=== PATIENT | female | born 1945 | race African-American/Black ===

== ENCOUNTER 2019-11-26 17:08 | Emergency (ER) | payer MEDICARE, MEDICAID, SELFPAY ==
--- NOTE | ~2019-11-26 | XR_ITS ---
EXAMINATION: XR chest 2V EXAM DATE: 11/26/2019 18:08 INDICATION: Cough today. Feels cold. TECHNIQUE: Frontal and lateral projections of the chest obtained and reviewed. Comparison is made to prior examination from 06/08/2019. FINDINGS: Chronic left basilar scarring. Mild hyperinflation. The lungs are otherwise clear. There a re no pleural effusions. The cardiomediastinal silhouette is within normal limits. There is no pneu mothorax suspected. There are mild bony degenerative changes. There is aortic arteriosclerosis. IMPRESSION: No acute cardiopulmonary findings. Reviewed, dictated and finalized at location A.
[2019-11-26 17:25] VITALS: BP 147/66; PULSE 85; RESP 16; TEMP 37; O2SAT 98
--- NOTE | 2019-11-26 17:42 | ED.GENADULT ---
HPI - General Adult General Chief complaint: Unspecified Stated complaint: feeling cold Time Seen by Provider: 11/26/19 17:42 Source: patient Mode of arrival: ambulatory Limitations: no limitations History of Present Illness HPI narrative: Kajal Cabral is a 74 yo female with PMH of chronic pain, stroke, chronic anticoagulation, copd, is here because not feeling well and is cold. Has cold sore on lip. VS and O2 sats are stable. poor historian Related Data Home Medications Medication Instructions Recorded Confirmed albuterol sulfate INHALATION 11/26/19 apixaban [Eliquis] 1 mg PO BID 11/26/19 11/26/19 atorvastatin 1 mg PO DAILY 11/26/19 11/26/19 folic acid 11/26/19 furosemide 1 mg PO DAILY 11/26/19 11/26/19 gabapentin 1 mg PO TID 11/26/19 11/26/19 lorazepam 1 mg PO TID 11/26/19 11/26/19 meloxicam 1 mg PO DAILY 11/26/19 11/26/19 spironolactone 1 mg PO BID 11/26/19 11/26/19 varenicline [Chantix] 1 mg PO DAILY 11/26/19 11/26/19 Allergies Allergy/AdvReac Type Severity Reaction Status Date / Time morphine Allergy Unknown VOMITING Verified 11/26/19 17:35 pentazocine Allergy Unknown VOMITING Verified 11/26/19 17:35 Review of Systems Review of Systems: Narrative: CONSTITUTIONAL: Denies fever, chills, sweats. States is cold, runny nose EYES: Denies visual changes, redness, discharge. ENT: Denies rhinorrhea, congestion, sore throat, otalgia. CARDIOVASCULAR: Denies chest pain, palpitations, edema. RESPIRATORY: Denies dyspnea, wheezing, cough GASTROINTESTINAL: Denies abdominal pain, nausea, vomiting, diarrhea. GENITOURINARY: Denies dysuria, hematuria, abnormal discharge SKIN: Denies rash or itching. fever blister along the right lower lip NEUROLOGIC: Denies numbness, or focal weakness. PSYCHIATRIC: Denies anxiety or depression. [facility] Social History Social History (Updated 11/26/19 @ 18:02 by Katy Laura CNP) Smoking status: Current some day smoker Alcohol intake: former Gender identity (if verbalized by the patient): Female Comments At time of signature, I agree with nursing past medical, surgical, social and family history. There is no relevant family history pertinent to the presenting complaint. Known high blood pressure Exam Narrative: Exam Narrative: GENERAL: This is a well-nourished, well-developed patient, in mild distress. States she just does not feel well HEAD: normocephalic, atraumatic. EYES: Sclera clear/white. Vision is grossly intact. EARS: External ears normal. Hearing grossly intact. NOSE: External nose normal without nasal discharge, nares without redness, no rhinorrhea. THROAT: Mucous membranes moist, NECK: Neck supple, CARDIOVASCULAR: Regular rate and rhythm without murmurs, gallops, or rubs. RESPIRATORY: Coarse to auscultation. Breath sounds equal bilaterally. No wheezes, rales, or rhonchi. GASTROINTESTINAL: Abdomen soft, SKIN: warm, intact with no suspicious lesions or rash, good texture and turgor. NEURO: awake, alert, and oriented to person, place and time. There were no obvious focal neurologic abnormalities. Steady gait EXTREMITIES: Normal range of motion. 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 Follow up with pcp at [place] Vital Signs Vital signs: Vital Signs Temperature 98.6 F 11/26/19 17:25 Pulse Rate 85 11/26/19 17:25 Respiratory Rate 16 11/26/19 17:25 Blood Pressure 147/66 H 11/26/19 17:25 Pulse Oximetry 98 11/26/19 17:25 Temperature 98.6 F 11/26/19 17:25 Pulse Rate 85 11/26/19 17:25 Respiratory Rate 16 11/26/19 17:25 Blood Pressure 147/66 H 11/26/19 17:25 Pulse Oximetry 98 11/26/19 17:25 Medical Decision Making Differential Diagno
== END 2019-11-26 18:30 | disposition home or self-care (01) ==
PROVIDERS: Emergency Provider Nurse Practitioner; PCP Internal Medicine
DX: B00.1 Herpesviral vesicular dermatitis (principal); J06.9 Acute upper respiratory infection, unspecified; Z86.73 Personal history of transient ischemic attack (TIA), and cerebral infarction without residual deficits; J44.9 Chronic obstructive pulmonary disease, unspecified; Z79.01 Long term (current) use of anticoagulants; G89.29 Other chronic pain; F17.200 Nicotine dependence, unspecified, uncomplicated
CPT/HCPCS: 71046; 99213; G0463

== ENCOUNTER 2021-04-18 11:00 | Outpatient (RCR) | payer MEDICARE, MEDICAID, SELFPAY ==
--- NOTE | 2021-02-20 10:41 | OTOPEVAL ---
OCCUPATIONAL THERAPY INITIAL EVALUATION 02/20/21 Thank you for referring Kajal Cabral to [facility].? The patient is scheduled to be seen for occupational therapy? 2x/week for 4 weeks. Please review, sign, date and return this plan of care RENETTA. I agree with and certify that the following plan of care is medically necessary. Referring Physician Date Referring Provider: Mary Grissom MD *OT Outpatient Evaluation Outpatient Past Medical History Past Medical History Source of Past Medical History Recalled from Previous Visit, Confirmed with Patient/Family Neurological History Hx Cerebrovascular Accident (CVA) Yes: Jun 2020; CEREBELLAR CVA 2013 Hx Other Neurological Disorders Yes: PN Cardiovascular History Hx Aneurysm Yes: RIGHT M1/M2 BIFURCATION ANEURYSM Hx Deep Vein Thrombosis Yes Hx Hypertension Yes Hx Peripheral Vascular Disease Yes: BILAT FEM-POP BYPASS Respiratory History Hx Respiratory Disorders No Significant History Gastrointestinal History Hx Gastrointestinal Disorders No Significant History Genitourinary History Hx Renal Disease Yes: CKD-III Hx Urinary Tract Infection Yes Musculoskeletal History Hx Arthritis Yes Hx Other Musculoskeletal Disorders Yes: RIGHT CHRONIC RTC TEAR Hematological History Hx Hematological Disorders No Significant History Endocrine History Hx Diabetes Yes: DM-II HEENT History Hx HEENT Disorders No Significant History Integumentary History Hx Skin Disorders No Significant History Reproductive History Hx Post Menopausal Yes Psychosocial History Hx Psychiatric Disorders No Significant History Pain History History of Any Previous or Ongoing No Significant History Instance of Pain Anesthesia History Hx Anesthesia Reactions No Significant History Evaluation Information Problem Diagnosis Encephalopathy Onset January 2021 Subjective Information Kajal is here today with Query Text:As Reported By Patient/ diagnosis of encephalopathy and Family chronic CVA (CVA Jun 2020). She was hospitalized in January 2021 with UTI and since then has had more difficulty walking and getting up from chairs. She was at the [facility] for several days. She states today that it is hard for her to get around and move but she is also scared to move. She states that walks with the walker when at home.
--- NOTE | 2021-02-20 12:07 | PTOPEVAL ---
PHYSICAL THERAPY EVALUATION AND PLAN OF CARE Thank you for referring Kajal Cabral to [facility].? The patient is scheduled to be seen for therapy? 2x/week for 4 weeks. Please review, sign, date and return this plan of care RENETTA. I agree with and certify that the following plan of care is medically necessary. Referring Physician Date Evaluation Diagnosis CVA, encephalopathy Onset January 2021 Subjective Information Kajal is here today with Query Text:As Reported By Patient/ diagnosis of encephalopthy and Family chronic CVA. She was hospitalized in January 2021 with UTI and since then has had more difficulty walking and getting up from chairs. [facility]. She states today that it is hard for her to get around and move but she is also scared to move. She was scared [facility] at the [facility]. She states that walks with the walker when at home. She has a wheelchair at home but does not use it. (use the wheelchair to assist in moving faster, otherwise she walks). She has a ramp in the front of the house and stairs out of the garage. Has not done stairs since coming home. Kajal states that she is very nervous today and not sure of expectations. I attempted to reassure her by providing her with a plan for what we will do today and what to expect moving forward. Prior Level of Function Activity Level (Last 3 Months) Activity of Daily Living Ability Needs Some Help Indoor/Home Mobility Needs Some Help Community Mobility Needs Some Help Stairs Ability Needs Some Help Functional Cognition (Planning, Shopping Needs Some Help , Taking Medications) Cooking No Cleaning No Laundry No Shopping No Driving No Home Setting Home Type House,Single Level Environmental Barriers Railing, Bilateral,Stairs, 2-4 Living Situation With Spouse Support Available
--- NOTE | 2021-03-21 15:07 | OTOPEVAL ---
OCCUPATIONAL THERAPY RE-EVALUATION REPORT 03/21/21 Thank you for referring Kajal Cabral to [facility].? The patient is scheduled to be seen for therapy? 1x/week for 4 weeks. Please review, sign, date and return this plan of care RENETTA. I agree with and certify that the following plan of care is medically necessary. Referring Physician Date Referring Provider: aMry Grissom MD *OT Outpatient Evaluation Start: 02/20/21 09:29 Evaluation Information Problem Diagnosis Encephalopathy Onset January 2021 Additional Evaluation Detail Outpatient therapy began . OT has been focusing on improving the patient's functional independence with ADLs. Limitations to return to independence include anxiety and memory deficits. She continues to have a lot of fear when trying to complete shower and toilet transfers. Subjective Information Kajal reports improvements Query Text:As Reported By Patient/ with transfers and walking. Family She states she has not tried a shower transfer at home due to being too fearful. states that he sees some improvement and that she does well for us here, but it dosn' t always go as well at home. Pain Assessment Timing of Pain Assessment Timing of Pain Assessment Re-assessment Pain Scale Pain Scale Used Numeric (1 - 10) Self Report Pain Assessment Bilateral Knee(s) Reported Pain Level 5 Pain Description Aching Pain Score Pain Score 5: Self Report Interventions Used Interventions Used By Clinicians Rest Upper Extremity Range of Motion Scapular/ Shoulder Range of Motion Right Scapular/Shoulder Range of Motion (R) shoulder elevation limited Comments due to h/o torn rotator cuff (10+ years old). Active elevation is limited to ~45*. She can complete self passive to ~90*. Elbow/Forearm Range of Motion Right Reason Not Measured WNL/Right Wrist Range of Motion Right Reason Not Measured WNL/Right Finger Range of Motion Right Reason Not Measured WNL/Right Finger Range of Motion Comments Clumsy and uncoordinated active ROM in the right hand. Upper Extremity Muscle Strength Testing Scapular/Shoulder Right Shoulder Flexion Strength 2- Poor - Shoulder Extensi
--- NOTE | 2021-03-21 15:20 | PTOPEVAL ---
PHYSICAL THERAPY PROGRESS REPORT Thank you for referring Kajal Cabral to [facility].? The patient is scheduled to be seen for therapy? 1x/week for 4 weeks. Please review, sign, date and return this plan of care RENETTA. I agree with and certify that the following plan of care is medically necessary. Referring Physician Date Subjective: Family continues to have goals for Kajal to ambulate without a walker. states that Kajal does much better with us here than at home and that she continues to have a lot of anxiety and fear and very limited confidence. Lower Extremity Muscle Strength Testing Hip Strength Bilateral Hip Flexion Strength 4+ Good + Hip Abduction Strength 4 Good Hip Strength Comments functional stance/balance: standing upright hands at side for 5 seconds Knee Strength Bilateral Knee Flexion Strength 5 Normal Knee Extension Strength 5 Normal Knee Strength Comments functional strength: must use UE to push to stand from chair , sometimes fearful and anxious about moving to a standing or sitting position Gait Assessment Gait Assessment Ambulation Assistive Devices Walker, Wheeled Weight Bearing Status - Left Full Weight Bearing Status - Right Full Maintains Weight Bearing Status Yes Ambulation Distance 98 Query Text:(Feet) Ambulation Speed (feet/second) 0.7 Ambulation Ability Standby Assistance Additional Ambulation Comments improved gait performed today with fewer cues required Stair Climbing Assessment Stair Climbing Assessment Stair Climbing Assistive Devices Railings Weight Bearing Status - Left Full Weight Bearing Status - Right Full Number of Steps Climbed (Steps) 4 Number of Repetitions (Repetitions) 1 Technique Single Steps Stair Climbing Direction Both Up and Down Stair Climbing Ability Contact Guard Ability to Step Over a Curb Contact Guard Stair Climbing Comments requires simple cues and encouragement Safety Assessment Patient Safety Factors Affecting Safety Decreased Balance,Decreased Body Awareness,Decreased Mobility,Decreased Motor Planning Safety Comments decreased problem solving PT Clinical Summary Kajal is demonstrating progress in ability to perform functional tasks with greater success today than initially. She continues to have significant fear and anxiety
--- NOTE | 2021-04-16 16:31 | PTOPEVAL ---
PHYSICAL THERAPY DISCHARGE NOTE Thank you for referring Kajal Cabral to [facility]. Please review, sign, date and return this plan of care RENETTA. I agree with and certify that the following plan of care is medically necessary. Referring Physician Date Discharge Diagnosis Encephalopathy Onset January 2021 Subjective Information Kajal states that she can do Query Text:As Reported By Patient/ things at home including Family getting herself a glass of water, going to the bathroom, and getting to the front door. reports that they have a difficult time motivating Kajal to increase her activity levels and motivating her to use the stairs despite her stating that she can do them if she wants to. Pain Score Pain Score 0: Self Report Additional Pain Score Comments . Lower Extremity Range of Motion General Lower Extremity Range of Motion Reason Not Measured WFL/Left,WFL/Right Lower Extremity Muscle Strength Testing Hip Strength Bilateral Hip Flexion Strength 4+ Good + Hip Abduction Strength 4 Good Hip Strength Comments functional stance/balance: standing upright hands at side for 60 seconds with SBA, able to look to the right and left before taking hold of walker Knee Strength Bilateral Knee Flexion Strength 5 Normal Knee Extension Strength 5 Normal Knee Strength Comments functional strength: must use UE to push to stand from chair , sometimes fearful and anxious about moving to a standing or sitting position Transfer Assessment Chair Transfer Assessment Chair Transfer Assistive Devices Gait Belt Ambulation Assistive Devices Walker, Wheeled Chair Transfer Destination Ambulatory Sit to Stand Chair Transfer Ability Standby Assistance Stand to Sit Chair Transfer Ability Standby Assistance Ability to Transfer In/Out of Chair Standby Assistance Cues Needed for Chair Transfer Tactile,Verbal Chair Transfer Comments given more time to perform task, she does very well with safety Gait Assessment Gait Assessment Ambulation Assistive Devices Walker, Wheeled Weight Bearing Status - Left Full Weight Bearing Status - Right Full Maintains Weight Bearing Status Yes
--- NOTE | 2021-04-18 12:13 | OTOPEVAL ---
OCCUPATIONAL THERAPY RE-EVALUATION AND DISCHARGE REPORT 04/18/21 Kajal has made improvements with UB strength, coordination, and has improved functional transfers. She is now taking full showers at home and completing the transfer without her 's assist. Patient and spouse are independent with HEP. Discussed at length the importance of continuing to complete her HEP, continue to be as mobile as possible, and to continue to complete shower transfers as to not lose the progress she has achieved over the last 2 months. D/C today with HEP. I agree with and certify that the following plan of care is medically necessary. Please sign this D/C Report and return RENETTA. Referring Physician Date Referring Provider: Mary Grissom MD *OT Outpatient Re-Evaluation Problem Diagnosis Encephalopathy Onset January 2021 Additional Evaluation Detail Outpatient therapy began . OT has been focusing on improving the patient's functional independence with ADLs. Subjective Information Kajal states that she has Query Text:As Reported By Patient/ been getting in/out of the Family shower regularly at home now. She reports that she feels stronger and has been doing well getting herself in/out of the bathroom also. Pain Assessment Timing of Pain Assessment Timing of Pain Assessment Assessment Self Report Self Report Pain Level 0 Pain Score Pain Score 0: Self Report Upper Extremity Muscle Strength Testing Scapular/Shoulder Right Shoulder Flexion Strength 2- Poor - Shoulder Extension Strength 4 Good Shoulder Strength Comments No change. Has chronic RTC tear. Elbow/Forearm Right Elbow Flexion Strength 5 Normal Elbow Extension Strength 5 Normal Wrist Strength Right Wrist Flexion Strength 4 Good Wrist Extension Strength 4 Good Wrist Strength Comments Improved from 4-/5. Hand Delinquent Tax Collector Assistant/Pinch Strength Assessment Hand Right Delinquent Tax Collector Assistant Strength (lbs) 53 Lateral Pinch Strength (lbs) 7 Palmar Pinch Strength (lbs) 3.66 Hand Delinquent Tax Collector Assistant/Pinch Strength Comments Measurements from 02/20/21: Delinquent Tax Collector Assistant 43.66 lbs. Lateral 5.66 lbs. Palmar 2 lbs. 9-Hole Peg Hand Test Hand Right Hand Dominance Right Scoring Time (seconds) 83 Interpretation Severely Below Normal Comments Norm: 24 sec.; Improved from 116 sec Transfer Assessment Tub/Shower Transfer Assessment Tub/Shower Transfer Assistive Devices Gait Belt,Grab Bars,Shower
== END 2021-04-19 10:01 | disposition home or self-care (01) ==
LOC: ANHOT 11:00
DX: M25.511 Pain in right shoulder (principal); G93.41 Metabolic encephalopathy; R26.89 Other abnormalities of gait and mobility; R53.1 Weakness; R41.3 Other amnesia; G89.29 Other chronic pain
CPT/HCPCS: 97110; 97112; 97116; 97163; 97166; 97530

== ENCOUNTER 2022-11-17 09:14 | Emergency (ER) | payer MEDICARE, MEDICAID, SELFPAY ==
[2022-11-17 09:34] VITALS: BP 135/83; PULSE 76; RESP 18; TEMP 36.6; O2SAT 100
--- NOTE | 2022-11-17 09:45 | ED.FEMALEGU ---
HPI - Female Genitourinary General Chief complaint: Urogenital-Female Stated complaint: Painful & frequent urination Time Seen by Provider: 11/17/22 09:47 Source: patient, family, RN notes reviewed and old records reviewed Mode of arrival: wheelchair Limitations: no limitations History of Present Illness HPI Narrative: 77 year old female who presents to express care with spouse with complaints of painful and frequent urination since Thursday. Patient reports that she has no lower abdominal pains or any back pains, states just floyd when she urinates and she has had to go more frequently. Patient reports that she has had no known fevers, chills or sweats. Patient has had 3 previous strokes and is in wheelchair, assists with her care. MD elicited complaint: UTI Pertinent past history: diabetes and other (previous UTI, previous CVA X3) Onset (ago): day(s) (day 3 of symptoms.) Location of symptoms: perineum Severity: mild Severity scale (1-10): 3 Quality of pain: aching Urinary symptoms: Dysuria, Urgency and Frequency Related Data Home Medications Medication Instructions Recorded Confirmed apixaban 5 mg tablet (Eliquis) 1 mg PO BID 11/26/19 11/26/19 varenicline 1 mg tablet (Chantix) 1 mg PO DAILY 11/26/19 11/26/19 Allergies Allergy/AdvReac Type Severity Reaction Status Date / Time morphine Allergy Unknown VOMITING Verified 11/17/22 09:40 pentazocine Allergy Unknown VOMITING Verified 11/17/22 09:40 Review of Systems Review of Systems: CONSTITUTIONAL: Denies fever, chills, or sweats. CARDIOVASCULAR: Denies chest pain, palpitations, or edema. RESPIRATORY: Denies cough or dyspnea. GASTROINTESTINAL: Denies abdominal pain, nausea, vomiting, or diarrhea. GENITOURINARY: Reports dysuria, frequency, urgency. Denies flank pain or hematuria. SKIN: Denies rash or itching. MUSCULOSKELETAL: Denies back pain or myalgia. Denies CVA tenderness NEUROLOGIC: Denies headache, some residual weakness to right arm and All systems reviewed & are unremarkable except as noted in HPI and below PMFSH Past Medical History Medical History (Updated 11/17/22 @ 10:08 by Ivelisse Christianson NP) Chronic anticoagulation CKD (chronic kidney disease), stage III HTN (hypertension) Stroke Surgical History Surgical History (Updated 11/17/22 @ 10:06 by Ivelisse Christianson NP) History of femoropopliteal bypass Family History Family History Mother Acute myocardial infarction Asthma Social History Social History Years smoked: 60 Smoking status: Current every day smoker Tobacco type: cigarettes Smokeless tobacco user: other Second hand tobacco smoke exposure: No Alcohol intake: former Gender identity (if verbalized by the patient): Female Comments At time of signature, agree with nursing past medical, surgical, social and family history. There is no relevant family history pertinent to the presenting complaint Exam Narrative: GENERAL: Chronic ill-appearing, well-nourished,obese, and in no acute distress. HEAD: Normocephalic, atraumatic. NECK: Supple.no lymphadenopathy CHEST: Clear to auscultation. No respiratory distress. SAO2 100% HEART: Regular rate and rhythm. No murmur heard. Normal peripheral pulses. ABDOMEN: Soft, nontender, nondistended, normal active bowel sounds. No CVA tenderness on examine, reports burning with urination EXTREMITIES: Normal range of motion. No edema. SKIN: Warm, dry, no rash. NEURO: No focal deficits. Alert and oriented x3. Course Course Emergency Course: Patient is aware of diagnosis, understands and agrees to treatment plan.? Anticipatory guidance given.? Patient agrees to follow-up as directed and is aware of reasons to seek care at the emergency department. Portions of this record may have been created with voice recognition software Level of Care: [facility] Care Visit
== END 2022-11-17 10:15 | disposition home or self-care (01) ==
PROVIDERS: Emergency Provider Registered Nurse
DX: N39.0 Urinary tract infection, site not specified (principal); F17.210 Nicotine dependence, cigarettes, uncomplicated; I12.9 Hypertensive chronic kidney disease with stage 1 through stage 4 chronic kidney disease, or unspecified chronic kidney disease; N18.30 Chronic kidney disease, stage 3 unspecified; Z86.73 Personal history of transient ischemic attack (TIA), and cerebral infarction without residual deficits; Z79.01 Long term (current) use of anticoagulants
CPT/HCPCS: 81003; 87077; 87086; 87186; 99213; G0463

== ENCOUNTER 2022-11-29 12:44 | Emergency (ER) | payer MEDICARE, MEDICAID, SELFPAY ==
[2022-11-29 12:50] VITALS: BP 125/73; PULSE 82; RESP 16; TEMP 36.5; O2SAT 100
--- NOTE | 2022-11-29 13:19 | ED.FEMALEGU ---
HPI - Female Genitourinary General Chief complaint: Urogenital-Female Stated complaint: PAINFUL URINATION Time Seen by Provider: 11/29/22 12:47 Source: patient and family Mode of arrival: wheelchair Limitations: no limitations History of Present Illness HPI Narrative: 77-year-old female presents to [facility] accompanied by family member for complaints of urinary frequency some pain and burning intermittently for the past 2 weeks. Patient was evaluated here on November 17, diagnosed with urinary tract infection and was prescribed Macrobid. Antibiotic was then changed to Augmentin due to urine culture results. patient reports that she continues with urinary symptoms. Patient denies history of kidney disease. Patient denies back pain, abdominal pain, fever, body aches, chills, nausea, vomiting, diarrhea, vaginal discharge or vaginal bleeding. MD elicited complaint: dysuria and UTI Pertinent past history: recurrent UTIs Onset (ago): week(s) (2) Vaginal discharge: none Vaginal bleeding: none Urinary symptoms: Dysuria, Urgency and Frequency Related Data Home Medications Medication Instructions Recorded Confirmed apixaban 5 mg tablet (Eliquis) 1 mg PO BID 11/26/19 11/29/22 varenicline 1 mg tablet (Chantix) 1 mg PO DAILY 11/26/19 11/29/22 Allergies Allergy/AdvReac Type Severity Reaction Status Date / Time morphine Allergy Unknown VOMITING Verified 11/29/22 12:46 pentazocine Allergy Unknown VOMITING Verified 11/29/22 12:46 Review of Systems Constitutional: Constitutional: Denies chills and Denies fatigue ENT: Denies dizziness, Denies epistaxis, Denies nasal congestion and Denies sore throat Respiratory: Respiratory: Denies cough, Denies dyspnea and Denies wheezing Gastrointestinal: Gastrointestinal: Denies diarrhea, Denies nausea and Denies vomiting Genitourinary: Genitourinary: Denies hematuria, Reports nocturia, Denies genital lesions, Reports dysuria, Denies pelvic pain, Denies flank pain and Denies vaginal discharge Integumentary/Breasts: Skin/Breast: Denies rash Neurologic: Denies dizziness, Denies syncope and Denies headache(s) Allergic/Immunologic: Allergic/Immunologic: Denies throat swelling, Denies tongue swelling and Denies wheezing PMFSH Past Medical History Medical History Chronic anticoagulation CKD (chronic kidney disease), stage III HTN (hypertension) Stroke Surgical History Surgical History History of femoropopliteal bypass Family History Family History Mother Acute myocardial infarction Asthma Social History Social History Years smoked: 60 Smoking status: Current every day smoker Tobacco type: cigarettes Smokeless tobacco user: other Second hand tobacco smoke exposure: No Alcohol intake: former Gender identity (if verbalized by the patient): Female Comments At time of signature, I agree with nursing past medical, surgical, social and family history. There is no relevant family history pertinent to the presenting complaint. Exam Const: General: healthy appearing Nutritional Appearance: well nourished Orientation/consciousness: patient oriented x3 Limitations: no limitations Eyes: Conjunctivae: conjunctivae normal Neck: Neck: normal visual inspection Resp: Effort & Inspection: normal respiratory effort and not labored Auscultation: clear to auscultation bilaterally, no crackles and no rales Cardio: Rate: regular rate Rhythm: regular rhythm Heart sounds: no murmurs GI: GI Palp: Yes Soft to palpation, No Tenderness to palpation present (GI), No Guarding due to palpation present (GI), No Rigid due to palpation, No Hernia present and No Palpable mass present : General: Yes bladder normal to palpation and Yes no CVA tenderness Back/Spine/Pelv
== END 2022-11-29 13:26 | disposition home or self-care (01) ==
PROVIDERS: Emergency Provider Nurse Practitioner Family
DX: N39.0 Urinary tract infection, site not specified (principal); I12.9 Hypertensive chronic kidney disease with stage 1 through stage 4 chronic kidney disease, or unspecified chronic kidney disease; N18.30 Chronic kidney disease, stage 3 unspecified; Z86.73 Personal history of transient ischemic attack (TIA), and cerebral infarction without residual deficits; Z79.01 Long term (current) use of anticoagulants; F17.210 Nicotine dependence, cigarettes, uncomplicated
CPT/HCPCS: 81003; 87077; 87086; 87186; 99213; G0463